=== PATIENT | male | born 1940 | race Caucasian/White ===

== ENCOUNTER 2016-10-07 09:42 | Emergency (ER) | payer MEDICARE, MEDICAID ==
[~2016-10-07 09:42] MED LIST: ACTOS15 MG; ACTOS15 MG PO; ASPIRIN EC81 MG PO; ASPIRIN325 MG; AVODART0.5 MG; AVODART0.5 MG PO; AZOPT5 ML; AZOPT5 ML EACH EYE; CLARITIN10 M6 PO; CRESTOR10 MG; CRESTOR20 M1 PO; DARVOCET-N 1001 TAB; FLOMAX0.4 MG; FLONASE ALLERG9.9 ML; FLONASE16 GM; GABAPENTIN300 MG; GAS GONE80 MG; LISINOPRIL5 MG; METOPROLOL TART25 MG; MULTIVITAMIN1 CAP; MULTIVITAMIN1 TAB PO; NEURONTIN300 M1 PO; OMEPRAZOLE20 M3 PO; OXYGEN; PRILOSEC20 MG; PRINIVIL5 M1 PO; SPIRIVA18 MC1 INH; TOPROL XL25 M1 PO; ULTRAM50 M1 PO; ULTRAM50 MG PO; VENTOLIN HFA18 G2 INH; XALATAN2.5 M1 OP; XALATAN2.5 ML
[2016-10-07 11:23] LABS: BASO % 0.4 % (0-2); EOS % 4.4 % (0-7); EOSINOPHIL ABSOLUTE COUNT 0.3 tho/cmm (0.0-0.7); HCT-HEMATOCRIT 41.4 % (36.0-53.5); HGB-HEMOGLOBIN 13.5 gm/dl (13.5-17.0); IMMATURE GRANULOCYTES ABSOLUTE 0.01 tho/cmm (0-0.03); IMMATURE GRANULOCYTES PERCENT 0.1 % (0-0.3); LYMPH % 34.2 % (20-45); LYMPH ABSOLUTE COUNT 2.6 tho/cmm (0.8-4.5); MCH (MEAN CORPUSCULAR HGB) 28.5 pg (28.0-32.0); MCHC MEAN CORPUSCULAR HGB CONC 32.6 % (32.0-36.0); MCV (MEAN CELL VOLUME) 87.3 fl (82.0-96.0); MEAN PLATELET VOLUME 9.3 cmc (9.4-12.4); MONO % 8.6 % (0-12); MONOCYTE ABSOLUTE COUNT 0.7 tho/cmm (0.0-1.2); NEUTROPHILS % 52.3 % (40-80); PLATELET COUNT 162 tho/cmm (150-450); RED BLOOD COUNT 4.74 mil/cmm (4.40-5.70); RED CELL DISTRIBUTION WIDTH 14.2 % (12.4-16.4); WHITE BLOOD COUNT 7.7 tho/cmm (4.0-10.0)
[2016-10-07 11:32] LABS: ANION GAP 14 mmol/L (0-20); BLOOD UREA NITROGEN 35 mg/dl (6-24); CARBON DIOXIDE-VENOUS 25 mmol/L (22-32); CHLORIDE 107 mmol/l (96-110); CREATININE 2.33 mg/dl (0.60-1.30); GLUCOSE 96 mg/dL (70-110); POTASSIUM 5.8 mmol/L (3.7-5.1); SODIUM 140 mmol/L (135-145); eGFR VALUE FOR BLACK 30 mL/Min
== END 2016-10-07 11:44 ==
LOC: EDMED 09:42
PROVIDERS: Physician Assistant
DX: S76.011A Strain of muscle, fascia and tendon of right hip, initial encounter (principal); S00.93XA Contusion of unspecified part of head, initial encounter; M17.11 Unilateral primary osteoarthritis, right knee; I25.10 Atherosclerotic heart disease of native coronary artery without angina pectoris; I10 Essential (primary) hypertension; Z79.899 Other long term (current) drug therapy; W18.30XA Fall on same level, unspecified, initial encounter; Y92.59 Other trade areas as the place of occurrence of the external cause